=== PATIENT | female | born 1950 | race Caucasian/White ===

== ENCOUNTER 2016-11-08 16:52 | Emergency (ER) | payer MEDICARE, BC ==
[2016-11-08 17:03] VITALS: BP 131/76
[2016-11-08 17:19] LABS: Urine Bilirubin Negative (NEGATIVE); Urine Ketone Negative (NEGATIVE); Urine Nitrite Negative (NEGATIVE); Urine Protein Negative (NEGATIVE); Urine Specific Gravity <=1.005 SP.GR. (1.005-1.010); Urine Urobilinogen Normal (NORMAL); Urine pH 6.5 pH (5.0-7.0)
[2016-11-08] MEDS ORDERED: ORPHENADRINE CITRATE 30 MG/ML VIAL IM ONE (17:19)
[2016-11-08] MEDS ORDERED: KETOROLAC TROMETHAMINE 60 MG/2 ML VIAL IM ONE ×2 (17:19→17:22)
[2016-11-08] MEDS ORDERED: ORPHENADRINE CITRATE 30 MG/ML VIAL ONE (17:22)
--- NOTE | 2016-11-08 17:26 | ERNOTE ---
Back Pain ER HPI Presenting Symptoms: hx chronic back pain Time Seen by Provider: 11/08/16 17:16 Source: patient, family Exam Limitations: no limitations Immunizations: IMMUNIZATION HX Immunizations Up to Date Yes History of Influenza Vaccine Yes Hx Pneumococcal Vaccination Yes Allergies/Adverse Reactions: Allergies alendronate sodium [From Fosamax] Adverse Reaction (Mild, Verified 11/08/16 17: 03) ABD PAIN Home Medications: HOME MEDICATIONS Calcium Carbonate/Vitamin D3 [Calcium 600 + Vit D 400 Tablet] 1 each PO BID [Last Taken Unknown] Simvastatin 20 mg PO DAILY 02/13/13 [Last Taken Unknown] Cholecalciferol (Vitamin D3) [Vitamin D3] 1,000 unit PO DAILY 11/08/16 [Last Taken Unknown] Cyclobenzaprine HCl [Flexeril] 10 mg PO TID PRN #30 tab 11/08/16 [Last Taken Unknown] traMADol HCL [Ultram] 50 mg PO QID PRN #20 tablet 11/08/16 [Last Taken Unknown] Narrative: Patient presents with left-sided lumbar paraspinal pain and spasm. Patient has a history of back pain with sciatica and this flared up several days ago and is not getting better despite her normal stretching routine regimen. She describes it as moderate to severe in intensity. Timing: Reports: constant Quality/Severity: Reports: moderate, severe Location of pain: Reports: lower back Activities at Onset: Reports: none Recent Injury?: Reports: no Possible Precipitating Factor: Reports: none Modifying Factors - (Improves): Reports: nothing Modifying Factors - (Worsens): Reports: nothing Review of Systems - Review of Systems Constitutional: Present: See HPI EYE: Present: no symptoms reported ENT: Present: no symptoms reported Respiratory: Present: no symptoms reported Cardiology: Present: no symptoms reported Gastrointestinal/Abdominal: Present: no symptoms reported Genitourinary: Present: no symptoms reported Musculoskeletal: Present: back pain, muscle stiffness Skin: Present: no symptoms reported Neurological: Present: no symptoms reported Endocrine: Present: no symptoms reported Hematologic/Lymphatic: Present: no symptoms reported Psych: Present: no symptoms reported - Patient's Past Medical History Patient History - Medical: GERD, Other - chronic back pain Patient History - Cardiac/Respiratory: No pertinent hx Patient History - Cancer: No Hx of Cancer Patient History - Surgical Procedures: Appendectomy, Cholecystectomy, Hysterectomy, T & A, Other - Social History Living Situations: spouse Psych History: No pertinent hx Smoking Status: Never smoker Have you smoked in the past 12 months: No Alcohol Use: occasionally Drug Use: none - Immunizations Immunizations Up to Date: Yes Hx Pneumococcal Vaccination: Yes History of Influenza Vaccine: Yes Physical Exam - Physical Exam General Appearance: Present: wd/wn, alert, moderate distress Head Exam: Present: normal inspection Eye Exam: Normal inspection: bilateral, PERRL: bilateral Ears, Nose, Throat: Present: normal ENT inspection, H, normal pharynx Neck: Present: normal inspection, nontender Respiratory: Present: no respiratory distress, normal breath sounds, no accessory muscle use, chest nontender, lungs clear Cardiovascular/Chest: Present: regular rate, rhythm, no murmur, normal peripheral pulses Gastrointestinal/Abdominal: Present: normal bowel sounds, nontender, nondistended, soft, no organomegaly Rectal Exam: Present: deferred Back Exam: Present: decreased range of motion, muscle spasm Extremity Exam: Present: normal inspection, non-tender, no edema, normal range of motion Neurological Exam: Present: alert, oriented, normal mood/affect Skin Exam: Present: normal color, warm/dry Lymphatic Exam: Present: no adenopathy ED Progress - Vital Signs Patient's Vital Signs:: I have reviewed the patient's vital signs. Vital Signs: Vital Signs 11/08/16 17:00 Temperature 36.9 C Pulse Rate 73 Respiratory 14 Rate Blood Pressure 131/76 O2 Sat by Pulse 96 Oximetry - Progress/Reassessment Chief Complaint: Back Pain Plan - Plan Plan: Patient is currently on ibuprofen 600 mg and is not doing remarkable job control spasm and only minimally on the pain. Patient will be started on Flexeril and tramadol for the breakthrough pain and she'll follow-up with her family physician within the next week for any further treatment as deemed necessary. Departure Clinical Impression: Muscle spasm Back pain Qualifiers: Back pain location: low back pain Chronicity: acute Back pain laterality: left Sciatica presence: without sciatica Qualified Code(s): M54.5 - Low back pain - Departure Disposition: Home self-care Condition: Good Instructions: Low Back Sprain With Rehab-SportsMed, Back Pain, Adult, Easy-to- Read, Muscle Cramps and Spasms, [id number] Referrals: Oetken,Maria Teresa Y, DO [Primary Care Provider] - Prescriptions: Cyclobenzaprine HCl [Flexeril] 10 mg PO TID PRN #30 tab PRN Reason: MUSCLE SPASMS traMADol HCL [Ultram] 50 mg PO QID PRN #20 tablet PRN Reason: Moderate Pain
[2016-11-08 17:29] LABS: Urine Appearance Slightly Cloudy; Urine Bacteria None Seen; Urine Blood 5 /ul (NEGATIVE); Urine Color Pale Yellow; Urine RBC None Seen /hpf (0-5); Urine WBC None Seen /hpf (0-5)
== END 2016-11-08 17:47 | disposition home or self-care (01) ==
LOC: ER 16:52
DX: M54.5 Low back pain (principal); M62.830 Muscle spasm of back

== ENCOUNTER 2016-11-13 17:11 | Emergency (ER) | payer MEDICARE, BC ==
[2016-11-13] MEDS ORDERED: ONDANSETRON HCL/PF 2 MG/ML VIAL IV ONE (17:48)
[2016-11-13] MEDS ORDERED: KETOROLAC TROMETHAMINE 30 MG/ML VIAL IV ONE (17:50)
[2016-11-13] MEDS ORDERED: HYDROmorphone HCL 1 MG/ML DISP.SYRIN IV ONE (17:51)
[2016-11-13] MEDS ORDERED: KETOROLAC TROMETHAMINE 30 MG/ML VIAL ONE (18:08)
[2016-11-13] MEDS ORDERED: ONDANSETRON HCL/PF 2 MG/ML VIAL ONE (18:08)
[2016-11-13] MEDS ORDERED: HYDROmorphone HCL 1 MG/ML DISP.SYRIN ONE (18:08)
--- NOTE | 2016-11-13 18:38 | ERNOTE ---
Back Pain ER HPI Time Seen by Provider: 11/13/16 17:35 Source: patient Exam Limitations: no limitations Immunizations: IMMUNIZATION HX Immunizations Up to Date Yes History of Influenza Vaccine Yes Hx Pneumococcal Vaccination Yes Allergies/Adverse Reactions: Allergies alendronate sodium [From Fosamax] Adverse Reaction (Mild, Verified 11/13/16 17: 24) ABD PAIN Home Medications: HOME MEDICATIONS Calcium Carbonate/Vitamin D3 [Calcium 600 + Vit D 400 Tablet] 1 each PO BID [Last Taken Unknown] Simvastatin 20 mg PO DAILY 02/13/13 [Last Taken Unknown] Cholecalciferol (Vitamin D3) [Vitamin D3] 1,000 unit PO DAILY 11/08/16 [Last Taken Unknown] Cyclobenzaprine HCl [Flexeril] 10 mg PO TID PRN #30 tab 11/08/16 [Last Taken Unknown] traMADol HCL [Ultram] 50 mg PO QID PRN #20 tablet 11/08/16 [Last Taken Unknown] HYDROcodone/ACETAMINOPHEN [Hydrocodon-Acetaminophen 5-325] 1 each PO DAILY 11/13 [Last Taken Unknown] Narrative: Patient presents with severe left-sided scapular pain and severe pain on the medial last back of her left scapula. This pain has been there for a week patient has been to our emergency room before her pain is not controlled at this time she denies any mechanism of injury Review of Systems - Review of Systems Constitutional: Present: no symptoms reported EYE: Present: no symptoms reported ENT: Present: no symptoms reported Respiratory: Present: no symptoms reported Cardiology: Present: no symptoms reported Gastrointestinal/Abdominal: Present: no symptoms reported Genitourinary: Present: no symptoms reported Musculoskeletal: Present: See HPI - Patient's Past Medical History Patient History - Medical: GERD, Other Patient History - Cardiac/Respiratory: No pertinent hx Patient History - Cancer: No Hx of Cancer Patient History - Surgical Procedures: Appendectomy, Cholecystectomy, Hysterectomy, T & A, Other Patient History - Other: None LMP (females 10-50): post men - Social History Living Situations: home Psych History: No pertinent hx Smoking Status: Former smoker Alcohol Use: occasionally Drug Use: none - Immunizations Immunizations Up to Date: Yes Hx Pneumococcal Vaccination: Yes History of Influenza Vaccine: Yes Physical Exam - Physical Exam General Appearance: Present: wd/wn, alert, no apparent distress - patient is not in any medical distress however she is very very tearful she is in a lot of pain. Respiratory: Present: no respiratory distress, normal breath sounds, no accessory muscle use, chest nontender, lungs clear Cardiovascular/Chest: Present: regular rate, rhythm, no murmur, normal peripheral pulses Back Exam: Present: other - patient is extremely tender upon palpation of the area between her spine and her left scapula. A significant amount of muscle spasm is palpated no lesions are noted there is no redness no bruising no deformity or crepitus. ED Progress - Vital Signs Patient's Vital Signs:: I have reviewed the patient's vital signs. Vital Signs: Vital Signs 11/13/16 11/13/16 11/13/16 17:14 18:20 18:34 Temperature 37.2 C Pulse Rate 80 82 79 Respiratory 14 17 17 Rate Blood Pressure 125/62 104/76 104/76 O2 Sat by Pulse 99 95 94 Oximetry - X-Ray X-Ray #2 X-Ray: shoulder - Progress/Reassessment Chief Complaint: Back Pain Plan - Plan Plan: X-rays are collectively negative for obvious fractures. Patient does have on exam severe muscle spasm Departure Clinical Impression: Muscle spasm - Departure Disposition: Home self-care Condition: Good Instructions: Muscle Cramps and Spasms, [id number] Referrals: Maria Teresa Perea DO [Primary Care Provider] -
[2016-11-13 19:06] VITALS: BP 106/73
== END 2016-11-13 19:04 | disposition home or self-care (01) ==
LOC: ER 17:11
DX: M62.830 Muscle spasm of back (principal); K21.9 Gastro-esophageal reflux disease without esophagitis
CPT/HCPCS: 72072; 73030; 96374; 96375; 99283; J2405

== ENCOUNTER 2017-01-06 10:23 | Emergency (ER) | payer MEDICARE, BC ==
[2017-01-06] MEDS ORDERED: ALBUTEROL SULFATE 2.5 MG/0.5 ML VIAL.NEB IH ONE ×2 (10:49→11:04)
[2017-01-06 11:04] LABS: Hemoglobin 14.3 gm/dL (12.5-16.0); Mean Cell Volume 90.5 fl (78-100); Mean Corpuscular Hemoglobin 30.8 pg (27-31); Mean Platelet Volume 9.6 fl (6.0-9.5); Neutrophil # 6.1 K/mm3 (1.3-6.0); Neutrophil % 57.9 % (42-75.0); Platelet Count 316 K/mm3 (150-450); Red Blood Count 4.64 M/mm3 (4.2-5.4); Red Cell Distribution Width 12.9 % (11.5-14.0); White Blood Count 10.6 K/mm3 (4.0-10.5)
--- NOTE | 2017-01-06 11:12 | ERNOTE ---
Date of Service: 01/06/17 Time Seen by Provider: 01/06/17 10:33 Stated Complaint: NOT FEELING WELL Presenting Symptoms:: cough Source: patient Exam Limitations: no limitations Immunizations: IMMUNIZATION HX Immunizations Up to Date Yes History of Influenza Vaccine Yes Hx Pneumococcal Vaccination Yes Allergies/Adverse Reactions: Allergies alendronate sodium [From Fosamax] Adverse Reaction (Mild, Verified 01/06/17 10: 32) ABD PAIN Home Medications: HOME MEDICATIONS Calcium Carbonate/Vitamin D3 [Calcium 600 + Vit D 400 Tablet] 1 each PO BID [Last Taken Unknown] Simvastatin 20 mg PO HS 02/13/13 [Last Taken Unknown] Cholecalciferol (Vitamin D3) [Vitamin D3] 1,000 unit PO DAILY 11/08/16 [Last Taken Unknown] Cyclobenzaprine HCl [Flexeril] 10 mg PO TID PRN #30 tab 11/08/16 [Last Taken Unknown] traMADol HCL [Ultram] 50 mg PO QID PRN #20 tablet 11/08/16 [Last Taken Unknown] Albuterol Sulfate [Ventolin Hfa] 2 puff IH Q4H PRN #1 inhaler 01/06/17 [Last Taken Unknown] Azithromycin [Zithromax] 250 mg PO DAILY #6 tablet 01/06/17 [Last Taken Unknown] Benzonatate [Tessalon Perle] 100 mg PO TID #30 capsule 01/06/17 [Last Taken Unknown] Levofloxacin [Levaquin] 500 mg PO DAILY 01/06/17 [Last Taken Unknown] guaiFENesin [Mucinex] 1,200 mg PO BID #20 tablet.sa 01/06/17 [Last Taken Unknown ] predniSONE [Prednisone] 3 tab PO DAILY #9 tab 01/06/17 [Last Taken Unknown] predniSONE [Prednisone] 20 tab PO DAILY 01/06/17 [Last Taken Unknown] - History of Present Ilness Narrative: Pt. comes in with c/o cough and chest congestion for a week. Pt. was seen by her PCP an started on prednisone for 3 days and was given Rocephin IM and Levaquin for this and is getting worse and feels like she cannot get the mucus in her chest to expectorate. Pt. denies any chest pain but states tath her chest santiago and feels congested when she coughs. Review of Systems - Review of Systems Constitutional: Present: no symptoms reported. Absent: recent illness, fever, chills, weakness, fatigue, malaise EYE: Present: no symptoms reported ENT: Present: no symptoms reported Respiratory: Present: cough, wheezing Cardiology: Present: no symptoms reported. Absent: chest pain, palpitations, edema Gastrointestinal/Abdominal: Present: no symptoms reported. Absent: nausea, vomiting, diarrhea Genitourinary: Present: no symptoms reported Musculoskeletal: Present: no symptoms reported. Absent: back pain, joint pain Skin: Present: no symptoms reported Neurological: Present: no symptoms reported. Absent: headache, dizziness/light- headedness, numbness, tingling All Other Systems: All systems neg except as marked - Patient's Past Medical History Patient History - Medical: GERD, Osteoporosis Patient History - Cardiac/Respiratory: No pertinent hx, Hyperlipidemia Patient History - Cancer: No Hx of Cancer Patient History - Surgical Procedures: Appendectomy, Cholecystectomy, Colonoscopy, EGD, Hysterectomy, T & A, Other Patient History - Other: None LMP (females 10-50): Menopausal - Social History Living Situations: home Psych History: No pertinent hx - Immunizations Immunizations Up to Date: Yes Hx Pneumococcal Vaccination: Yes History of Influenza Vaccine: Yes Physical Exam - Physical Exam General Appearance: Present: wd/wn, alert, no apparent distress Head Exam: Present: normal inspection, no evidence of injury Eye Exam: Normal inspection: bilateral, PERRL: bilateral, EOMI: bilateral Ears, Nose, Throat: Present: normal ENT inspection, normal pharynx Neck: Present: normal inspection, nontender. Absent: lymphadenopathy (R), lymphadenopathy (L) Respiratory: Present: no respiratory distress, no accessory muscle use, rhonchi - thoughout Cardiovascular/Chest: Present: regular rate, rhythm, no murmur, normal peripheral pulses Gastrointestinal/Abdominal: Present: normal bowel sounds, nontender, nondistended, soft, no organomegaly Back Exam: Present: normal inspection Extremity Exam: Present: normal inspection, non-tender, normal range of motion, no edema Neurological Exam: Present: alert, oriented, normal mood/affect, no motor/ sensory deficits Skin Exam: Present: normal color, warm/dry. Absent: pallor, skin rash ED Progress - Date and Time Seen: Date and Time: 01/06/17 11:47 Pt. improved with neb tx will have pt. start albuterol inhaler at home as well as mucinex and tessalon perles, will also add in zithromax to pt. abx coverage. - Results and Orders Patient's Lab Results:: I have reviewed the patient's lab results. - Vital Signs Patient's Vital Signs:: I have reviewed the patient's vital signs. Vital Signs: Vital Signs 01/06/17 10:27 Temperature 36.5 C Pulse Rate 68 Respiratory 19 Rate Blood Pressure 151/61 - EKG EKG: NSR EKG read: Interp. by me - X-Ray X-Ray #1 X-Ray: chest Interpretation: Reviewed by me X-ray Comments: No consolidation, No infiltrates. - Progress/Reassessment Chief Complaint: Upper Respiratory Symptoms Progress:: Improved Departure Clinical Impression: Bronchitis - Departure Disposition: Home self-care Condition: Good Instructions: Metered Dose Inhaler (No Spacer Used), Acute Bronchitis, Easy-to- Read Additional Instructions: As we discussed there is no consolidation in your lungs at this time but the bronchitis has become so severe that we consider it "walking pneumonia". Please take inhaler anytime you are short of breath up to 2 puffs every 4 hours. Please take tessalon perrles and Mucinex as scheduled. Continue Levaquin with Zithromax. Referrals: Maria Teresa Perea DO [Primary Care Provider] - Prescriptions: Albuterol Sulfate [Ventolin Hfa] 2 puff IH Q4H PRN #1 inhaler PRN Reason: Shortness Of Breath Azithromycin [Zithromax] 250 mg PO DAILY #6 tablet Benzonatate [Tessalon Perle] 100 mg PO TID #30 capsule guaiFENesin [Mucinex] 1,200 mg PO BID #20 tablet.sa predniSONE [Prednisone] 3 tab PO DAILY #9 tab
[2017-01-06 11:25] LABS: ALT 26 U/L (19-67); AST 23 U/L (0-48); Albumin * 4.1 gm/dl (3.4-5.0); Alkaline Phosphatase * 64 U/L (50-170); BNP * 71 pg/mL (5-325); BUN/Creatinine Ratio 12.9 (9.0-21.6); Bilirubin, Total 0.4 mg/dL (0.0-1.1); Blood Urea Nitrogen 13 mg/dL (3-23); Ca. Corrected For Albumin 8.8 mg/dL (8.4-10.2); Calcium * 9.2 mg/dL (7.9-10.9); Carbon Dioxide 25.2 mmol/L (24-32.6); Chloride 105 mmol/L (97-106); Glucose * 97 mg/dL (70-110); Potassium 4.2 mmol/L (3.4-4.6); Sodium 141 mmol/L (132-142); Total Protein 7.8 gm/dL (6.2-8.2); Troponin I Less than 0.017 ng/ml (0.00-0.10)
[2017-01-06] MEDS ORDERED: METHYLPREDNISOLONE ACETATE 80 MG/ML VIAL IM ONE (11:26)
[2017-01-06] MEDS ORDERED: METHYLPREDNISOLONE ACETATE 80 MG/ML VIAL ONE (11:49)
[2017-01-06 12:01] VITALS: BP 140/100
== END 2017-01-06 12:12 | disposition home or self-care (01) ==
LOC: ER 10:23
DX: J40 Bronchitis, not specified as acute or chronic (principal)

== ENCOUNTER 2017-01-07 15:21 | Emergency (ER) | payer MEDICARE, BC ==
[2017-01-07] MEDS ORDERED: ALBUTEROL SULFATE 2.5 MG/0.5 ML VIAL.NEB IH ONE ×2 (15:56→16:03)
--- NOTE | 2017-01-07 16:11 | ERNOTE ---
Time Seen by Provider: 01/07/17 15:44 Stated Complaint: CONGESTION.SHORT OF BREATH Presenting Symptoms:: cough Source: patient, family Exam Limitations: no limitations Immunizations: IMMUNIZATION HX Immunizations Up to Date Yes History of Influenza Vaccine Yes Hx Pneumococcal Vaccination Yes Allergies/Adverse Reactions: Allergies alendronate sodium [From Fosamax] Adverse Reaction (Mild, Verified 01/07/17 15: 31) ABD PAIN Home Medications: HOME MEDICATIONS Calcium Carbonate/Vitamin D3 [Calcium 600 + Vit D 400 Tablet] 1 each PO BID [Last Taken Unknown] Simvastatin 20 mg PO HS 02/13/13 [Last Taken Unknown] Cholecalciferol (Vitamin D3) [Vitamin D3] 1,000 unit PO DAILY 11/08/16 [Last Taken Unknown] Cyclobenzaprine HCl [Flexeril] 10 mg PO TID PRN #30 tab 11/08/16 [Last Taken Unknown] traMADol HCL [Ultram] 50 mg PO QID PRN #20 tablet 11/08/16 [Last Taken Unknown] Albuterol Sulfate [Ventolin Hfa] 2 puff IH Q4H PRN #1 inhaler 01/06/17 [Last Taken Unknown] Azithromycin [Zithromax] 250 mg PO DAILY #6 tablet 01/06/17 [Last Taken Unknown] Benzonatate [Tessalon Perle] 100 mg PO TID #30 capsule 01/06/17 [Last Taken Unknown] guaiFENesin [Mucinex] 1,200 mg PO BID #20 tablet.sa 01/06/17 [Last Taken Unknown ] predniSONE [Prednisone] 3 tab PO DAILY #9 tab 01/06/17 [Last Taken Unknown] predniSONE [Prednisone] 20 tab PO DAILY 01/06/17 [Last Taken Unknown] - History of Present Ilness Narrative: Patient has had URI symptoms for about two weeks. She was seen initially by her PCP and treated with rocephin, levaquin and prednisone. She followed up yesterday and was send to the ER for concerns about pneumonia. CRX did not show and infiltrate, she was diagnosed with bronchitis and send home on albuterol inhaler, and zithromax (which she took yesterday and today). She also states as she started to get heel pain (from the levaquin?) her doctor told her to stop levaquin and called in clindamycin for her ( which she has not picked up yet). She continues to cough (dry at this point) and get short of breath with minimal exertion. She had one prior episode of feeling like this a few years ago when she had pneumonia and wasn't able to shake the coughing and shortness of breath for a few months Timing: constant Frequency/Possible Cause: Reports: occasional episodes Modifying Factors - Improves: Reports: albuterol, rest Modifying Factors - Worsens: Reports: activity, deep breath Associated Symptoms: Reports: cough, shortness of breath, sore throat - resolved. Denies: nasal drainage, fever/chills Prior Treatment: Reports: recently seen, currently on antibiotics Review of Systems - Review of Systems Constitutional: Present: recent illness, malaise ENT: Present: See HPI. Absent: nose congestion, sore throat Respiratory: Present: See HPI, shortness of breath, cough Cardiology: Absent: chest pain Gastrointestinal/Abdominal: Absent: nausea, vomiting, abdominal pain Genitourinary: Present: no symptoms reported Musculoskeletal: Absent: back pain, neck pain Neurological: Absent: headache - Patient's Past Medical History Patient History - Medical: GERD, Osteoporosis Patient History - Cardiac/Respiratory: Hyperlipidemia Patient History - Cancer: No Hx of Cancer Patient History - Surgical Procedures: Appendectomy, Cholecystectomy, Colonoscopy, EGD, Hysterectomy, T & A, Other Patient History - Other: None - Social History Living Situations: home Psych History: No pertinent hx - Immunizations Immunizations Up to Date: Yes Hx Pneumococcal Vaccination: Yes History of Influenza Vaccine: Yes Physical Exam - Physical Exam General Appearance: Present: wd/wn, alert, no apparent distress, anxious Head Exam: Present: normal inspection Eye Exam: Normal inspection: bilateral Ears, Nose, Throat: Present: normal ENT inspection, normal pharynx Neck: Present: normal inspection, nontender. Absent: lymphadenopathy (R), lymphadenopathy (L) Respiratory: Present: no respiratory distress, normal breath sounds, no accessory muscle use, lungs clear Cardiovascular/Chest: Present: regular rate, rhythm, no murmur Gastrointestinal/Abdominal: Absent: nontender, nondistended Neurological Exam: Present: alert, oriented, normal mood/affect Skin Exam: Present: normal color, warm/dry ED Progress - Results and Orders Patient's Lab Results:: I have reviewed the patient's lab results. - Vital Signs Patient's Vital Signs:: I have reviewed the patient's vital signs. Vital Signs: Vital Signs 01/07/17 15:27 Temperature 36.9 C Pulse Rate 91 Respiratory 12 Rate Blood Pressure 154/75 O2 Sat by Pulse 97 Oximetry - CT/Ultrasound CT/Ultrasound Narrative: CT chest: no PE - Progress/Reassessment Chief Complaint: Upper Respiratory Symptoms Progress Note-Subjective: 01/07/17 17:12 patient feeling better after neb treatment, less cough, no shortness of breath currently discussed test results and getting a CTA to rule our PE, though viral bronchitis still most likely diagnosis 01/07/17 19:[address] and viral panel results with patient and Departure Clinical Impression: Acute bronchitis due to Rhinovirus - Departure Disposition: Home self-care Condition: Good Instructions: Acute Bronchitis, [id number] Additional Instructions: your bronchitis seems to be caused by a rhinovirus finish the zithromax but do not start the clindamycin use the inhaler with a spacer take ibuprofen, tylenol and cough medications as needed consider using an probiotic to prevent diarrhea and strengthen your immune system Referrals: Maria Teresa Perea, DO [Primary Care Provider] -
[2017-01-07 16:36] LABS: Hematocrit 41.9 % (37.0-47.0); Hemoglobin 14.1 gm/dL (12.5-16.0); Mean Cell Volume 90.3 fl (78-100); Mean Corpuscular Hemoglobin 30.4 pg (27-31); Mean Corpuscular Hgb Conc 33.7 g/dl (32-36); Mean Platelet Volume 9.5 fl (6.0-9.5); Neutrophil # 11.3 K/mm3 (1.3-6.0); Neutrophil % 80.6 % (42-75.0); Platelet Count 315 K/mm3 (150-450); Red Blood Count 4.64 M/mm3 (4.2-5.4); Red Cell Distribution Width 12.8 % (11.5-14.0)
[2017-01-07 16:45] VITALS: BP 137/67
== END 2017-01-07 19:13 | disposition home or self-care (01) ==
LOC: ER 15:21
DX: J40 Bronchitis, not specified as acute or chronic (principal)

== ENCOUNTER 2017-04-10 02:37 | Emergency (ER) | payer MEDICARE, BC ==
[2017-04-10] MEDS ORDERED: NITROGLYCERIN 0.4 MG/TAB BTL SL PRN (02:38)
[2017-04-10] MEDS ORDERED: ASPIRIN 81 MG TAB.CHEW PO ONE (02:38)
--- NOTE | 2017-04-10 02:47 | ERNOTE ---
<Jerry Bowden - Last Filed: 04/10/17 10:02> Chest Pain/Cardiac HPI Chief Complaint: Chest Pain Time Seen by Provider: 04/10/17 02:38 Immunizations: IMMUNIZATION HX Immunizations Up to Date Yes History of Influenza Vaccine Yes Hx Pneumococcal Vaccination Yes Allergies/Adverse Reactions: Allergies alendronate sodium [From Fosamax] Adverse Reaction (Mild, Verified 04/10/17 02: 47) ABD PAIN Home Medications: HOME MEDICATIONS Simvastatin 20 mg PO HS 02/13/13 [Last Taken Unknown] Cholecalciferol (Vitamin D3) [Vitamin D3] 1,000 unit PO DAILY 11/08/16 [Last Taken Unknown] Gabapentin [Neurontin] 300 mg PO BID 04/10/17 [Last Taken Unknown] ED Progress - Vital Signs Vital Signs: Vital Signs 04/10/17 04/10/17 04/10/17 02:40 02:57 02:58 Temperature 36.2 C L Pulse Rate 64 61 69 Respiratory 18 15 Rate Blood Pressure 164/68 151/73 O2 Sat by Pulse 96 99 Oximetry 04/10/17 04/10/17 04/10/17 03:22 03:30 04:00 Temperature Pulse Rate 58 L 58 L 56 L Respiratory 10 L 12 14 Rate Blood Pressure 122/62 137/64 136/60 O2 Sat by Pulse 94 96 98 Oximetry 04/10/17 04/10/17 04/10/17 04:32 05:00 06:13 Temperature Pulse Rate 56 L 63 75 Respiratory 13 13 12 Rate Blood Pressure 124/58 113/74 155/98 O2 Sat by Pulse 95 97 98 Oximetry 04/10/17 04/10/17 04/10/17 07:12 08:16 08:51 Temperature Pulse Rate 68 77 61 Respiratory 16 14 12 Rate Blood Pressure 119/64 126/54 119/44 O2 Sat by Pulse 94 96 95 Oximetry 04/10/17 09:44 Temperature Pulse Rate 66 Respiratory 7 L Rate Blood Pressure 119/51 O2 Sat by Pulse 96 Oximetry Plan - Plan Plan: to be dismissed, to schedule cardiac stress test Departure Clinical Impression: Atypical chest pain - Departure Disposition: Home self-care Condition: Good Instructions: Nonspecific Chest Pain, [id number] Print Language: Kitt[place] Additional Instructions: Talk to your doctor on Tuesday about getting a cardiac stress test. If you have chest pain again return to the ED. Referrals: Maria Teresa Perea DO [Primary Care Provider] - <Marko Sanchez - Last Filed: 04/15/17 06:14> Chest Pain/Cardiac HPI Date of Service: 04/10/17 Source: patient Exam Limitations: no limitations Immunizations: IMMUNIZATION HX Immunizations Up to Date Yes History of Influenza Vaccine Yes Hx Pneumococcal Vaccination Yes Narrative: 67 that was awoken from sleep due to chest pain one hour ago which she said was initially severe and is subsequently decreased. She describes the pain as a pressure sensation, such as "someone sitting on her chest". There is nothing that aggravates or decreases the pain. Denies any shortness of breath or diaphoresis. Earlier tonight she had a fever of 99 which she took Tylenol PM proximal 2 hours ago. This morning experienced diarrhea, and has had nausea but no vomiting. There is a history of a cardiac stress test perhaps five years ago , but has not had any cardiac disease diagnosed. There is a history of hypertension, sciatica in the right leg, and neck pain. Date (Duration): 04/10/17 Time (Timing): 02:50 Timing: intermittent Severity/Quality: severe Location: substernal Chest Pain Radiation: no radiation Activities at Onset: sleep Modifying Factors - Improves: Present: nothing Modifying Factors - Worsens: Present: nothing Nitro Today/Relief: no nitro taken today Aspirin Treatment Today: no aspirin today Associated Symptoms: Present: fever/chills Prior Chest Pain/Cardiac Workup: Reports: stress test Review of Systems - Review of Systems Constitutional: Present: See HPI EYE: Present: no symptoms reported ENT: Present: no symptoms reported Respiratory: Present: no symptoms reported Cardiology: Present: See HPI Gastrointestinal/Abdominal: Present: See HPI Genitourinary: Present: no symptoms reported Musculoskeletal: Present: no symptoms reported Skin: Present: no symptoms reported Neurological: Present: no symptoms reported Endocrine: Present: no symptoms reported Hematologic/Lymphatic: Present: no symptoms reported Psych: Present: no symptoms reported - Patient's Past Medical History Patient History - Medical: GERD, Osteoporosis Patient History - Cardiac/Respiratory: Hyperlipidemia Patient History - Cancer: No Hx of Cancer Patient History - Surgical Procedures: Appendectomy, Cholecystectomy, Colonoscopy, EGD, Hysterectomy, T & A, Other Patient History - Other: None - Social History Psych History: No pertinent hx - Immunizations Immunizations Up to Date: Yes Hx Pneumococcal Vaccination: Yes History of Influenza Vaccine: Yes Physical Exam - Physical Exam General Appearance: Present: no apparent distress Head Exam: Present: normal inspection Eye Exam: Normal inspection: bilateral, PERRL: bilateral, EOMI: bilateral Ears, Nose, Throat: Present: normal ENT inspection Neck: Present: normal inspection Respiratory: Present: no respiratory distress, normal breath sounds Cardiovascular/Chest: Present: regular rate, rhythm, no murmur Gastrointestinal/Abdominal: Present: nontender, nondistended, soft Back Exam: Present: normal inspection Extremity Exam: Present: normal inspection Neurological Exam: Present: alert, oriented, normal mood/affect, auto roller II-XII nml as tested Skin Exam: Present: normal color ED Progress - Results and Orders Patient's Lab Results:: I have reviewed the patient's lab results. - Vital Signs Patient's Vital Signs:: I have reviewed the patient's vital signs. Vital Signs: Vital Signs 04/10/17 02:40 Temperature 36.2 C L Pulse Rate 64 Respiratory 18 Rate Blood Pressure 164/68 O2 Sat by Pulse 96 Oximetry - EKG EKG: NSR EKG read: Interp. by me EKG Comments: non specific t waves changes, rate 60, normal axis - X-Ray X-Ray #1 X-Ray: chest Interpretation: Interp. by me X-ray Comments: NAD - Progress/Reassessment Progress:: Improved Progress Note-Subjective: 04/10/17 04:31 The chest pain definitely decreased after the first nitroglycerin tablet. She is now pain-free. 04/10/17 04:49 A second troponin level will be obtained 0650 hrs. A third troponin will be obtained and 0900 hours. 04/10/17 04:50 04/10/17 08:07 This is a signout to Dr. Bowden for follow-up on the last troponin. If it is negative she'll be sent home with follow-up with her physician tomorrow. She should be instructed to have a cardiac stress test done next week. - Transfer of Care Physician Sign Out: Marko Sanchez Receiving Physician: Jerry Bowden Pending Results: Labs Expected Disposition: Discharge
[2017-04-10] MEDS ORDERED: ASPIRIN 81 MG TAB.CHEW ONE (02:51)
[2017-04-10 02:54] LABS: Hematocrit 41.5 % (37.0-47.0); Hemoglobin 14.2 gm/dL (12.5-16.0); Mean Cell Volume 91.2 fl (78-100); Mean Corpuscular Hemoglobin 31.2 pg (27-31); Mean Corpuscular Hgb Conc 34.2 g/dl (32-36); Mean Platelet Volume 9.2 fl (6.0-9.5); Neutrophil # 6.1 K/mm3 (1.3-6.0); Neutrophil % 75.5 % (42-75.0); Platelet Count 203 K/mm3 (150-450); Red Blood Count 4.55 M/mm3 (4.2-5.4); Red Cell Distribution Width 12.6 % (11.5-14.0); White Blood Count 8.1 K/mm3 (4.0-10.5)
[2017-04-10 03:07] LABS: Prothrombin Time (Patient) 10.3 Seconds (9.0-11.0)
[2017-04-10 03:09] LABS: INR 1.03 INR (0.90-1.10)
[2017-04-10 03:13] LABS: ALT 34 U/L (19-67); AST 48 U/L (0-48); Albumin * 3.7 gm/dl (3.4-5.0); Alkaline Phosphatase * 65 U/L (50-170); Anion Gap 11.7 mmol/L (6.8-13.8); BUN/Creatinine Ratio 12.4 (9.0-21.6); Bilirubin, Total 0.9 mg/dL (0.0-1.1); Blood Urea Nitrogen 11 mg/dL (3-23); Ca. Corrected For Albumin 8.7 mg/dL (8.4-10.2); Calcium * 8.8 mg/dL (7.9-10.9); Carbon Dioxide 25.5 mmol/L (24-32.6); Chloride 102 mmol/L (97-106); Glucose * 115 mg/dL (70-110); Potassium 3.2 mmol/L (3.4-4.6); Sodium 136 mmol/L (132-142); Total Protein 6.7 gm/dL (6.2-8.2); Troponin I Less than 0.017 ng/ml (0.00-0.10)
[2017-04-10] MEDS ORDERED: POTASSIUM CHLORIDE 20 MEQ TABLET.SA PO ONE (03:31)
[2017-04-10] MEDS ORDERED: POTASSIUM CHLORIDE 20 MEQ TABLET.SA ONE (04:04)
[2017-04-10 09:44] VITALS: BP 119/51
== END 2017-04-10 10:04 | disposition home or self-care (01) ==
LOC: ER 02:37
DX: E78.5 Hyperlipidemia, unspecified (principal)